=== PATIENT | female | born 1930 | race Native Hawaiian/Other Pacific Islander ===

== ENCOUNTER 2017-07-31 09:39 | Outpatient (CLI) | payer OTHER | END 2017-07-31 09:59 | disposition short-term general hospital (02) | LOC: AMB 09:39 | DX: R55 Syncope and collapse (principal) | CPT/HCPCS: A0425; A0429 ==

== ENCOUNTER 2017-07-31 09:59 | Emergency (ER) | payer OTHER ==
[~2017-07-31] VITALS: Ht 160 cm; Wt 55.8 kg
[2017-07-31 10:57] LABS: PLATELET COUNT 116 K/uL (152-353)
[2017-07-31 11:00] LABS: POTASSIUM 3.3 mmol/L (3.6-5.2); SODIUM 138 mmol/L (136-145)
== END 2017-07-31 17:30 | disposition home or self-care (01) ==
LOC: ED 09:59
PROVIDERS: Emergency Medicine
DX: R55 Syncope and collapse (principal); R00.1 Bradycardia, unspecified; I10 Essential (primary) hypertension
CPT/HCPCS: 36415; 80053; 82550; 84484; 85027; 96374; 99283; J2405

== ENCOUNTER 2017-11-23 12:16 | Outpatient (CLI) | payer OTHER | END 2017-11-23 21:43 | disposition home or self-care (01) | LOC: LABW 12:16 | DX: R19.7 Diarrhea, unspecified (principal) | CPT/HCPCS: 82272; 87015; 87045; 87205; 87324; 87328; 87329; 87449; 87899 ==

== ENCOUNTER 2018-02-03 07:49 | Outpatient (CLI) | payer OTHER ==
[2018-02-03] MEDS ORDERED: D32000 UNIT PO (08:21)
[2018-02-03] MEDS ORDERED: POTA10CA3 PO (08:21)
[2018-02-03] MEDS ORDERED: SERT50TA PO (08:22)
[2018-02-03] MEDS ORDERED: DONE5TAB PO (08:23)
[2018-02-03] MEDS ORDERED: PROBIOTIC1 TAB PO (08:24)
[2018-02-03] MEDS ORDERED: CARB25TA29 PO (08:24)
[2018-02-03] MEDS ORDERED: TRAZ50TA36 PO (08:24)
[2018-02-03] MEDS ORDERED: ASPIRIN 81 LOW81 MG PO (08:25)
== END 2018-02-03 07:59 | disposition short-term general hospital (02) ==
LOC: AMB 07:49
DX: G81.94 Hemiplegia, unspecified affecting left nondominant side (principal); Z86.73 Personal history of transient ischemic attack (TIA), and cerebral infarction without residual deficits
CPT/HCPCS: A0425; A0427

== ENCOUNTER 2018-02-03 08:09 | Emergency (ER) | payer OTHER ==
[~2018-02-03] VITALS: Ht 152.4 cm; Wt 54.4 kg
[2018-02-03 08:15] VITALS: TEMP 97.3
[2018-02-03] MEDS ORDERED: D32000 UNIT PO (08:21)
[2018-02-03] MEDS ORDERED: POTA10CA3 PO (08:21)
[2018-02-03] MEDS ORDERED: SERT50TA PO (08:22)
[2018-02-03] MEDS ORDERED: DONE5TAB PO (08:23)
[2018-02-03] MEDS ORDERED: TRAZ50TA36 PO (08:24)
[2018-02-03] MEDS ORDERED: CARB25TA29 PO (08:24)
[2018-02-03] MEDS ORDERED: PROBIOTIC1 TAB PO (08:24)
[2018-02-03] MEDS ORDERED: ASPIRIN 81 LOW81 MG PO (08:25)
[2018-02-03 08:28] LABS: PLATELET COUNT 143 K/uL (152-353)
[2018-02-03 08:35] LABS: POTASSIUM 3.3 mmol/L (3.6-5.2)
[2018-02-03 12:34] VITALS: BP 199/76
== END 2018-02-03 12:34 | disposition short-term general hospital (02) ==
LOC: ED 08:09
PROC: 0T9B70Z Drainage of Bladder with Drainage Device, Via Natural or Artificial Opening (ICD-10-PCS; principal; 2018-02-03)
DX: I48.91 Unspecified atrial fibrillation (principal); I49.8 Other specified cardiac arrhythmias; G45.8 Other transient cerebral ischemic attacks and related syndromes
CPT/HCPCS: 36415; 51702; 80053; 81000; 84484; 85027; 93005; 99284

== ENCOUNTER 2018-02-03 12:47 | Outpatient (CLI) | payer OTHER ==
[~2018-02-03 12:47] MED LIST: ASPIRIN 81 LOW81 MG PO; CARB25TA29 PO; D32000 UNIT PO; DONE5TAB PO; POTA10CA3 PO; PROBIOTIC1 TAB PO; SERT50TA PO; TRAZ50TA36 PO
== END 2018-02-03 14:03 | disposition short-term general hospital (02) ==
LOC: AMB 12:47
DX: I48.91 Unspecified atrial fibrillation (principal); I49.8 Other specified cardiac arrhythmias; G45.8 Other transient cerebral ischemic attacks and related syndromes
CPT/HCPCS: A0425; A0427